=== PATIENT | female | born 1960 | race Caucasian/White ===

== ENCOUNTER → 2017-04-05 | Outpatient (CLI) | payer BC ==
--- NOTE | ~2017-04-05 | MR32 ---
[facility] A Service of [facility] & [facility] RADIOLOGY TEXT RESULTS PATIENT: NELSY AVELAR LOCATION: [facility] : 58 UNIT #: [id number] AGE: [address]: Danielle Moreno MD SEX: F ORDER DR: [id number] [facility] [address] [place], [place] [address] [id number] O MR#: [id number] Acc #: [id number] NAME: NELSY AVELAR : 1960 SEX: F STUDY DATE/TIME: 04/05/2017 14:21 UNIT: [facility] ROOM: STUDY DESCRIPTION: MR Cervical Wo Contrast Attending Physician: Danielle Moreno M.D. Referring Physician: Danielle Moreno M.D. Ordering Physician: Danielle Moreno M.D. Primary Care Physician: Danielle Moreno M.D. MRI CENTER REPORT This report is preliminary unless electronic signature is present. EXAM MRI of the cervical spine without contrast dated 04/05/2017 HISTORY Neck pain, left shoulder and arm pain for THE last 2-3 months. No history of cervical spine surgery. TECHNIQUE Multisequence, multiplanar imaging of the cervical spine was obtained without contrast. FINDINGS Disc osteophyte complex are noted at multiple levels, with mild edematous endplate changes at C6-7. The cord demonstrates normal expected course, caliber and signal. Imaged posterior fossa and craniovertebral junction are unremarkable. Pre- and paravertebral soft tissues do not demonstrate any significant abnormality. There is mild mucosal thickening along the inferior left mastoids. C2-3: Concentric disc bulge with superimposed ubkan-rk-hfvq central protrusion with mild defect in the adjacent thecal sac. No neural foraminal narrowing. C3-4: Mild disc bulge without canal stenosis or neural foraminal narrowing. C4-5: Disc osteophyte complex with bilateral uncinate spurs, worse on the left. Severe left and mild right facet hypertrophic changes are noted with grfd-hk-hedinvyq canal stenosis. Severe left neural foraminal narrowing is noted. Correlate with left C5 radiculopathy. There is inferior right neural foraminal narrowing with a relatively patent superior aspect. [facility] A Service of [facility] & [facility] RADIOLOGY TEXT RESULTS PATIENT: NELSY AVELAR [facility] UNIT #: [id number] AGE: [address]: Danielle Moreno MD SEX: F ORDER DR: C5-6: Disc osteophyte complex with severe canal stenosis. Bilateral uncinate spurs are noted with severe inferior bilateral neural foraminal narrowing with relatively patent superior aspect. Cord is flattened without the right compression or cord signal change. C6-7: Disc osteophyte complex with severe canal stenosis and cord flattening with no obvious cord signal change. Mild compression cannot be excluded. There is cwahfxyu-tt-hjkiha left and moderate right neural foraminal narrowing particularly along the inferior aspect. Mild bilateral facet changes are noted. C7-T1: Concentric disc bulge with tiny central protrusion. No canal stenosis or neural foraminal narrowing is seen. IMPRESSION 1. Degenerative changes are noted at multiple levels, relatively worse at C6-7 followed by C5-6 with canal stenosis and cord flattening with suspicious mild compression of C6-7. No significant cord signal change is noted yet. 2. Edematous endplate changes are at C6-7. 3. Bilateral neural foraminal narrowing are noted at C5-6 and C6-7 as described above along with severe left C4-5 and inferior hqmpvxuu-zi-orqdzl C4-5 neural foraminal narrowing. Correlate with appropriate radiculopathy. Dictated by... Noam Machuca M.D. THIS IS AN ELECTRONICALLY VERIFIED REPORT Noam Machcua M.D. at 04/07/2017 5:29 PM CPR/aa TD: 04/06/2017 14:36 JOB #: [id number] MRI CENTER REPORT Page 1 of 1 COPY
== END | disposition home or self-care (01) ==
LOC: CMRI 13:27
DX: M54.12 Radiculopathy, cervical region (principal); M48.02 Spinal stenosis, cervical region; M50.21 Other cervical disc displacement, high cervical region; M50.81 Other cervical disc disorders, high cervical region; M25.78 Osteophyte, vertebrae
CPT/HCPCS: 72141